=== PATIENT | female | born 1960 | race African-American/Black ===

== ENCOUNTER 2018-10-23 08:42 | Day surgery (SDC) | payer OTHER ==
[2018-10-23] MEDS: SOD CHLORIDE 0.9% 1,000 ML IV (10:00)
[2018-10-23] MEDS ORDERED: MIDAZOLAM 1 MG/ML 2 ML INJ (13:44)
[2018-10-23] MEDS ORDERED: KETAMINE (50 MG/ML) 10 ML VIAL (13:44)
[2018-10-23] MEDS ORDERED: PROPOFOL 40 ML (13:44)
[2018-10-23] MEDS ORDERED: LIDOCAINE 2% (SDV) 5 ML INJ (13:44)
[2018-10-23] MEDS: LIDOCAINE 1% (MDV) 20 ML INJ (13:50)
[2018-10-23] MEDS: FENTAnyl 50 MCG/ML VIAL (13:56)
[2018-10-23] MEDS: GLYCOPYRROLATE 0.4 MG INJ (13:56)
[2018-10-23] MEDS ORDERED: morphine (1 MG/ML) 10ML SYRINGE IV ×2 (14:00)
[2018-10-23] MEDS ORDERED: DIPHENHYDRAMINE 50 MG INJ IV (14:00)
[2018-10-23] MEDS ORDERED: MEPERIDINE 25 MG INJ IV (14:00)
[2018-10-23] MEDS ORDERED: FENTAnyl 50 MCG/ML VIAL IV (14:00)
[2018-10-23] MEDS ORDERED: LABETALOL HCL 20MG INJ IV (14:00)
[2018-10-23] MEDS ORDERED: ALBUTEROL 0.083% (NEB) 2.5 MG/3 ML AMP HHN (14:00)
[2018-10-23] MEDS ORDERED: HYDROmorphONE 1 MG/5 ML IV SYRINGE IV ×2 (14:00)
[2018-10-23] MEDS ORDERED: OXYCODONE/ACETAMINOPHEN (5/325) TAB PO (14:00)
[2018-10-23] MEDS: ONDANSETRON 4 MG INJ IV (15:13)
[2018-10-23] MEDS: FENTAnyl 50 MCG/ML VIAL IV (15:14)
[2018-10-23] MEDS: HYDROmorphONE 1 MG/5 ML IV SYRINGE IV (15:17)
[2018-10-23] MEDS: OXYCODONE/ACETAMINOPHEN (5/325) TAB PO (15:54)
== END 2018-10-23 17:38 | disposition home or self-care (01) ==
LOC: SDS 08:42
DX: D72.829 Elevated white blood cell count, unspecified (principal); E11.9 Type 2 diabetes mellitus without complications; I11.0 Hypertensive heart disease with heart failure; I50.9 Heart failure, unspecified; Z79.84 Long term (current) use of oral hypoglycemic drugs; Z79.4 Long term (current) use of insulin
CPT/HCPCS: 38221; 77012; 82962; 88305; 88311; 88313